=== PATIENT | female | born 2000 | race Two or more races ===

== ENCOUNTER 2024-04-19 21:27 | Emergency (ER) | payer OTHER ==
[~2024-04-19] VITALS: Ht 175.3 cm; Wt 74.8 kg
[2024-04-19] MEDS ORDERED: IBUP-1953 PO (22:32)
[2024-04-19] MEDS ORDERED: SULF1TAB48 PO (22:32)
[2024-04-19] MEDS ORDERED: FLUCONAZOLE (100 MG) 100 MG TABLET ONE (22:45)
[2024-04-19] MEDS ORDERED: KETOROLAC TROMETHAMINE INJ 30 MG/ML VIAL ONE (22:45)
[2024-04-19] MEDS ORDERED: SULFAMETH/TRIMETH 800/160 MG 1 UDTAB TABLET ONE (22:46)
[2024-04-19] MEDS: SULFAMETH/TRIMETH 800/160 MG 1 UDTAB TABLET PO ONE (22:50)
[2024-04-19] MEDS: KETOROLAC TROMETHAMINE INJ 30 MG/ML VIAL IM ONE (22:50)
[2024-04-19] MEDS: FLUCONAZOLE (100 MG) 100 MG TABLET PO ONE (22:50)
[2024-04-19 23:01] VITALS: BP 120/74; O2SAT 98
== END 2024-04-19 23:02 | disposition home or self-care (01) ==
LOC: ER 21:27
DX: N76.2 Acute vulvitis (principal)
CPT/HCPCS: 99283; 96372; J1885